=== PATIENT | male | born 1980 | race Caucasian/White ===

== ENCOUNTER 2020-10-29 10:50 | Outpatient (REF) | payer MEDICAID, SELFPAY ==
--- NOTE | 2020-10-29 10:59 | XR_ITS ---
EXAMINATION: XR FOOT, RIGHT CLINICAL INFORMATION: Right foot pain. COMPARISON: None TECHNIQUE: AP, lateral, and oblique views of the right foot. FINDINGS: First metatarsophalangeal hallux valgus angulation with mild joint space narrowing and small marginal osteophytes. No osseous erosion. No fracture or dislocation. Tiny plantar and dorsal calcaneal enthesophytes. XR/XR foot RT min 3V IMPRESSION: First metatarsophalangeal hallux valgus angulation with mild degenerative arthritis. Tiny plantar and dorsal calcaneal spurs.
== END 2020-10-29 10:51 | disposition home or self-care (01) ==
LOC: HO.XRAY 10:50
PROVIDERS: Visit Provider Registered Nurse
DX: M79.671 Pain in right foot (principal); L98.9 Disorder of the skin and subcutaneous tissue, unspecified
CPT/HCPCS: 73630

== ENCOUNTER 2022-02-02 16:09 | Emergency (ER) | payer MEDICAID, SELFPAY ==
[2022-02-02 16:27] VITALS: BP 129/90; PULSE 95; RESP 18; TEMP 36.7; O2SAT 98; BMI 27.9
[2022-02-02 19:31] LABS: MANUAL DIFF FLAG NO
[2022-02-02 19:32] LABS: Basophils Absolute Auto 0.1 X10*3/uL (0.0-0.2); Basophils Percent Auto 0.9 % (0-2); Eosinophils Absolute Auto 0.2 X10*3/uL (0.0-0.4); Eosinophils Percent Auto 2.3 % (0-4); Hematocrit 45.5 % (42.0-52.0); Hemoglobin 15.3 g/dl (14.0-18.0); Imm Gran Abs Auto 0.01 X10*3/uL (0.00-0.03); Imm Gran Pct Auto 0.1 % (0.0-0.4); Lymphocytes Absolute Auto 2.8 X10*3/uL (1.2-4.9); Lymphocytes Percent Auto 35.1 % (20-40); Mean Corpuscular HGB Conc 33.6 g/dl (31.0-36.0); Mean Corpuscular Hemoglobin 28.4 pg (27.0-33.0); Mean Corpuscular Volume 84.6 fL (80.0-98.0); Mean Platelet Volume 8.8 fL (9.4-12.4); Monocytes Absolute Auto 0.8 X10*3/uL (0.1-1.2); Monocytes Percent Auto 9.8 % (2-11); Neutrophils Absolute Auto 4.2 x10*3/uL (2.0-8.3); Neutrophils Percent Auto 51.8 % (45-73); Platelet Count 257 X10*3/uL (160-400); Red Blood Count 5.38 X10*6/uL (4.60-5.80); Red Cell Distribution Width 13.2 % (11.0-16.0)
[2022-02-02 19:50] LABS: Alanine Aminotransferase 31 U/L (0-40); Alkaline Phosphatase 55 U/L (39-117); Anion Gap 13 (12-20); Aspartate Amino Transferase 35 U/L (5-37); Bilirubin Total 0.6 mg/dL (0.0-1.0); Blood Urea Nitrogen 13 mg/dL (9-16); Calcium 9.2 mg/dL (8.4-10.2); Carbon Dioxide 25 mmol/L (22-29); Chloride 100 mmol/L (96-108); Creatinine Clr Calc Pharmacy 141.8; Estimated Glomerular Filt Rate > 60; Glucose Random 168 mg/dL (60-115); Sodium 134 mmol/L (135-145); Total Protein 7.4 g/dL (6.5-8.0)
[2022-02-02 22:56] VITALS: BP 129/83; PULSE 77; RESP 16; TEMP 36.6; O2SAT 99
--- NOTE | 2022-02-02 23:00 | ED_ITS ---
HPI - Skin/Abscess/Foreign Bdy General Chief complaint: Skin/Abscess/Foreign Body Stated complaint: HBS Source: patient Mode of arrival: ambulatory Limitations: no limitations History of Present Illness HPI narrative: 41-year-old male presents for bilateral arm redness and swelling that started while he was at work. He works in a bakery, is not exposed to [place], did not state that he had any significant injuries or exposure to toxic chemicals. He has never had an experience like this. Was evaluated by his primary care physician who noted that he had an elevated blood sugar as well as an elevated A1c at 10.5. MD complaint: other (Erythema and swelling to bilateral upper extremities) Onset (ago): day(s) (2) Tetanus up to date: unsure Location: E and RUE Severity: mild Severity scale (1-10): 2 Quality: burning Pain Consistency: constant Relieving factors: none Exacerbating factors: none Associated symptoms: denies other symptoms Treatments prior to arrival: none Related Data Previous Rx's Medication Instructions Recorded doxycycline monohydrate 100 mg 100 mg PO Q12H 10 Days #20 cap 02/03/22 capsule Allergies Allergy/AdvReac Type Severity Reaction Status Date / Time shellfish derived Allergy Unknown UNKNOWN Unverified 06/25/20 17:47 [SHELLFISH DERIVED] Sulfa (Sulfonamide Allergy Unknown UNKNOWN Unverified 06/25/20 17:47 Antibiotics) [SULFA (SULFONAMIDE ANTIBIOTICS)] shellfish Allergy Unknown Uncoded 08/08/18 00:00 Review of Systems Review of Systems: Constitutional: No Fever, No Chills ENT/Mouth: No Ear Pain, No Hoarseness, No sore throat Eyes: No Eye Pain, No Swelling, No Redness, No Foreign Body Cardiovascular: No Chest Pain, No SOB Respiratory: No Cough, No Dyspnea Gastrointestinal: No Nausea, No Vomiting, No Diarrhea, No abdominal Pain Genitourinary: No Dysuria, No Hematuria Musculoskeletal: positive bilateral forearm pain, No Myalgias, No Joint Swelling Skin: No Skin lacerations, No rash, bilateral forearm redness Neuro: No Weakness, No Numbness, No Paresthesias, No Loss of Consciousness, No Dizziness, No Headache Psych: No Anxiety/Panic, No Depression Heme/Lymph: no easy bruising, no Lymphadenopathy Endocrine: No Polyuria, No Polydipsia Yes all other systems are reviewed and are negative PMFSH Past Medical History Attestation statement: The following information was validated with the patient. Source: old records reviewed Medical History Diabetes Social History Social History Advance Directives: No Advance Directives Information Provided: Yes Physical Exam Vital Signs: Vital Signs: Last Vital Signs Temp 98 F 02/02/22 22:56 Pulse 77 02/02/22 22:56 Resp 16 02/02/22 22:56 BP 129/83 02/02/22 22:56 Pulse Ox 99 02/02/22 22:56 BMI result Body Mass Index 27.9 Appearance: Alert. Oriented X3. No acute distress. Eyes: Pupils equal, round and reactive to light. ENT: Pharynx normal. Neck: Normal inspection. Neck supple. CVS: Normal heart rate and rhythm. Pulses normal. Respiratory: No respiratory distress. Breath sounds normal. Abdomen: Soft and nontender. Skin: Erythema noted to bilateral forearms dorsal aspect, Skin warm and dry. Normal skin color. Normal skin turgor. Extremities: No lower extremity edema. No edema noted to the upper extremities. Neuro: No motor deficit. No sensory deficit. Gait well-balanced will coordinate. Cranial nerves 2-12 intact. Course Course Course Narrative: 41-year-old male presents with bilateral upper arm cellulitis. There is no area of wound or puncture, no indication of insect bite. Dr. Carmichael at bedside to evaluate this patient with me. No edema noted. Will treat for cellulitis with ceftriaxone IV and p.o. doxycycline. 00:49 patient states to be feeling well. Will discharge home with doxycycline for 10 days for cellulitis. Did verbalize understanding of signs and symptoms indicating need for emergent intervention, doxycycline interaction with sun exposure and he must follow up with his primary care physician for elevated A1c. interpreter deaf utilized for all correspondence Cyan translate utilized for discharge instructions. Patient verbalized understanding of and agrees to plan of care to discharge home. Verbalized understanding of signs and symptoms indicating need for emergent intervention MDM - Skin/Abscess/Foreign Bdy Differential Diagnosis Differential diagnosis: Likely abscess of skin or subcutaneous tissue, viral exanthem, urticaria, cellulitis and contact dermatitis Medical Records Attestation: I reviewed the patient's medical records. Lab Data Attestation: I reviewed the patient's lab results. Result diagrams: 02/02/22 19:18 02/02/22 19:18 Labs: Lab Results 02/02/22 02/02/22 Range/Units 19:18 19:18 WBC 8.0 (4.8-10.8) X10*3/uL RBC 5.38 (4.60-5.80) X10*6/uL Hgb 15.3 (14.0-18.0) g/dl Hct 45.5 (42.0-52.0) % MCV 84.6 (80.0-98.0) fL MCH 28.4 (27.0-33.0) pg MCHC 33.6 (31.0-36.0) g/dl RDW 13.2 (11.0-16.0) % Plt Count 257 (160-400) X10*3/uL MPV 8.8 L (9.4-12.4) fL Immature Gran % (Auto) 0.1 (0.0-0.4) % Neut % (Auto) 51.8 (45-73) % Lymph % (Auto) 35.1 (20-40) % Preston % (Auto) 9.8 (2-11) % Eos % (Auto) 2.3 (0-4) % Baso % (Auto) 0.9 (0-2) % Lymph # (Auto) 2.8 (1.2-4.9) X10*3/uL Preston # (Auto) 0.8 (0.1-1.2) X10*3/uL Eos # (Auto) 0.2 (0.0-0.4) X10*3/uL Baso # (Auto) 0.1 (0.0-0.2) X10*3/uL Abs Immat Gran (auto) 0.01 (0.00-0.03) X10*3/uL Absolute Neuts (auto) 4.2 (2.0-8.3) x10*3/uL Absolute Nucleated RBC 0.000 (0.0-0.012) X10*3/uL Nucleated RBC % (auto) 0.0 (0.0-0.2) /100WBC Sodium 134 L (135-145) mmol/L Potassium 4.0 (3.3-5.1) mmol/L Chloride 100 (96-108) mmol/L Carbon Dioxide 25 (22-29) mmol/L Anion Gap 13 (12-20) BUN 13 (9-16) mg/dL Creatinine 0.83 (0.5-1.4) mg/dL Estim Creat Clear Calc 141.8 Estimated GFR > 60 Random Glucose 168 H (60-115) mg/dL Calcium 9.2 (8.4-10.2) mg/dL Total Bilirubin 0.6 (0.0-1.0) mg/dL AST 35 (5-37) U/L ALT 31 (0-40) U/L Alkaline Phosphatase 55 (39-117) U/L Total Protein 7.4 (6.5-8.0) g/dL Albumin 4.0 (3.5-5.0) g/dL Discharge Plan Discharge Clinical Impression: Cellulitis, Contact dermatitis Patient Disposition: Home, Self-Care Instructions: Contact Dermatitis (ED), Cellulitis (ED) Additional Instructions: Le evaluaron por celulitis en las extremidades superiores bilaterales. [place] doxiciclina cada 12 horas martha los pr?ximos 10 d?as. No se exponga a la lenny solar mientras david paxton medicamento. Debe realizar un seguimiento con siddiqui m?dico de atenci?n primaria para la elevaci?n de A1c. Siddiqui m?dico de atenci?n primaria necesita aumentar baljit medicamen tos para la diabetes. Luciana por elegir paxton departamento de emergencias para siddiqui evaluaci?n. Por favor, marta un seguimiento con el m?dico de atenci?n primaria seg?n sea necesario. Regrese al departamento de emergencias por cualquier s?ntoma nuevo, preocupante o que empeore. You were evaluated for cellulitis to bilateral upper extremities. Please take doxycycline every 12 hours for the next 10 days. Do not expose yourself to the [place] while taking this medication. You must follow-up with your primary care physician for A1c elevation. Your primary care physician needs to increase your diabetic medications. Thank you for choosing this emergency department for evaluation. Please follow-up with primary care physician as needed. Return to the emergency depart ment for any new, concerning, or worsening symptoms. Prescriptions: New doxycycline monohydrate 100 mg capsule 100 mg PO Q12H 10 Days Qty: 20 0RF Stand Alone Forms: Work/School Release
[2022-02-03] MEDS: diphenhydrAMINE HCL 50 MG/ML VIAL 12.5 MG IVPUSH (00:10)
[2022-02-03] MEDS: cefTRIAXone sodium 1 GM in 0.9 % Sodium Chloride 50 ML IV (00:11)
[2022-02-03 00:59] LABS: Erythrocyte Sedimentation Rate 8 MM/HR (0-15)
[2022-02-03 01:04] LABS: C Reactive Protein 1.74 mg/dL (< or = 0.50)
[2022-02-03 01:19] VITALS: BP 111/65; PULSE 71; RESP 16; TEMP 36.9; O2SAT 100
[2022-02-03 01:43] VITALS: BP 124/76; PULSE 77; RESP 18; O2SAT 96
== END 2022-02-03 01:51 | disposition home or self-care (01) ==
PROVIDERS: Nurse Practitioner Family; Emergency Provider Internal Medicine; PCP Family Medicine
DX: L03.114 Cellulitis of left upper limb (principal); L03.113 Cellulitis of right upper limb; L25.9 Unspecified contact dermatitis, unspecified cause; E11.9 Type 2 diabetes mellitus without complications
CPT/HCPCS: 36415; 80053; 85025; 85652; 86140; 96365; 96375; 99284; J0696; J1200

== ENCOUNTER 2022-02-11 15:04 | Outpatient (REF) | payer MEDICAID, SELFPAY ==
--- NOTE | ~2022-02-11 | XR_ITS ---
EXAMINATION: XR FOREARM, RIGHT XR FOREARM, LEFT CLINICAL INFORMATION: Redness, edema, cellulitis. COMPARISON: Bilateral hand radiographs 09/24/2018 TECHNIQUE: Digital forearm is imaged in AP and lateral views. There are 2 views on each side, total of 4 views. FINDINGS: Bony mineralization is normal on both sides. There is no destructive process or periostitis. There is no fracture or dislocation. There is no gas tracking in the soft tissues. Again, there is negative ulnar variance on each side similar to prior radiographs. The elbows show no capsular effusion. There is mild spurring from the medial left epicondyle. XR/XR forearm RT 2V IMPRESSION: -No destructive process, periostitis, or gas tracking in soft tissues. -No fracture or dislocation.
--- NOTE | ~2022-02-11 | XR_ITS ---
EXAMINATION: XR FOREARM, RIGHT XR FOREARM, LEFT CLINICAL INFORMATION: Redness, edema, cellulitis. COMPARISON: Bilateral hand radiographs 09/24/2018 TECHNIQUE: Digital forearm is imaged in AP and lateral views. There are 2 views on each side, total of 4 views. FINDINGS: Bony mineralization is normal on both sides. There is no destructive process or periostitis. There is no fracture or dislocation. There is no gas tracking in the soft tissues. Again, there is negative ulnar variance on each side similar to prior radiographs. The elbows show no capsular effusion. There is mild spurring from the medial left epicondyle. XR/XR forearm LT 2V IMPRESSION: -No destructive process, periostitis, or gas tracking in soft tissues. -No fracture or dislocation.
== END 2022-02-11 15:05 | disposition home or self-care (01) ==
LOC: HO.XRAY 15:04
PROVIDERS: Absent Provider General Practice; PCP General Practice; Visit Provider Internal Medicine
DX: R60.0 Localized edema (principal); L03.119 Cellulitis of unspecified part of limb
CPT/HCPCS: 73090

== ENCOUNTER 2022-03-31 15:05 | Outpatient (REF) | payer MEDICAID, SELFPAY ==
--- NOTE | ~2022-03-31 | XR_ITS ---
EXAMINATION: RIGHT FOOT AND ANKLE X-RAY CLINICAL INFORMATION: Pain. Tarsal tunnel syndrome. COMPARISON: Right foot x-ray from 2020 TECHNIQUE: 3 views of the right foot and 3 views of the right ankle FINDINGS: Right foot: No fracture or dislocation is seen. There is mild hallux valgus formation at the first MTP joint. Bone alignment is otherwise normal. There are small osteophytes joint mild joint space narrowing at the first MTP joint. Joint spaces are otherwise normal. There is soft tissue swelling adjacent to the first MTP joint. There are small calcaneal spurs. Right ankle: Bone alignment is normal. There is lucency seen on the lateral view in the anterior talus. Appearance is questionable for possible nondisplaced fracture. There may be overlying soft tissue swelling the ankle mortise. The ankle mortise is normal. There is soft tissue arterial calcification. XR/XR foot RT min 3V IMPRESSION: Right foot: Mild hallux valgus deformity and degenerative change at the first MTP joint. Right ankle: Lucency of the anterior talus seen on the lateral view and adjacent soft tissue swelling. Appearance is questionable for nondisplaced fracture. Clinical correlation recommended.
--- NOTE | ~2022-03-31 | XR_ITS ---
EXAMINATION: RIGHT FOOT AND ANKLE X-RAY CLINICAL INFORMATION: Pain. Tarsal tunnel syndrome. COMPARISON: Right foot x-ray from 2020 TECHNIQUE: 3 views of the right foot and 3 views of the right ankle FINDINGS: Right foot: No fracture or dislocation is seen. There is mild hallux valgus formation at the first MTP joint. Bone alignment is otherwise normal. There are small osteophytes joint mild joint space narrowing at the first MTP joint. Joint spaces are otherwise normal. There is soft tissue swelling adjacent to the first MTP joint. There are small calcaneal spurs. Right ankle: Bone alignment is normal. There is lucency seen on the lateral view in the anterior talus. Appearance is questionable for possible nondisplaced fracture. There may be overlying soft tissue swelling the ankle mortise. The ankle mortise is normal. There is soft tissue arterial calcification. XR/XR ankle RT min 3V IMPRESSION: Right foot: Mild hallux valgus deformity and degenerative change at the first MTP joint. Right ankle: Lucency of the anterior talus seen on the lateral view and adjacent soft tissue swelling. Appearance is questionable for nondisplaced fracture. Clinical correlation recommended.
== END 2022-03-31 15:06 | disposition home or self-care (01) ==
LOC: HO.XRAY 15:05
PROVIDERS: Absent Provider General Practice; PCP General Practice; Visit Provider Internal Medicine
DX: G57.51 Tarsal tunnel syndrome, right lower limb (principal)
CPT/HCPCS: 73610; 73630

== ENCOUNTER 2022-04-23 13:31 | Emergency (ER) | payer MEDICAID, SELFPAY | END 2022-04-23 14:40 | disposition left against medical advice (07) | PROVIDERS: Emergency Provider Emergency Medicine | DX: Z20.822 Contact with and (suspected) exposure to COVID-19 (principal) ==

== ENCOUNTER 2022-07-04 12:17 | Outpatient (REF) | payer MEDICAID, SELFPAY ==
--- NOTE | ~2022-07-04 | XR_ITS ---
EXAMINATION: XR KNEE, LEFT CLINICAL INFORMATION: Pain in left knee COMPARISON: None TECHNIQUE: Four views of the left knee. FINDINGS: Bones and soft tissues are normal. No fracture or joint effusion. Alignment is anatomic. Joint spaces are well maintained. No abnormal soft tissue calcification. XR/XR knee LT 4V IMPRESSION: Normal left knee.
== END 2022-07-04 12:18 | disposition home or self-care (01) ==
LOC: HO.XRAY 12:17
PROVIDERS: Absent Provider General Practice; PCP General Practice; Visit Provider Emergency Medicine
DX: M25.562 Pain in left knee (principal)
CPT/HCPCS: 73564

== ENCOUNTER 2022-08-11 15:06 | Outpatient (REF) | payer MEDICAID, SELFPAY ==
--- NOTE | ~2022-08-11 | XR_ITS ---
EXAMINATION: XR CHEST CLINICAL INFORMATION: Localized swelling COMPARISON: None TECHNIQUE: 2 views of the chest were obtained. FINDINGS: Low lung volumes but no focal consolidation or mass. Normal pulmonary vascularity. No pleural effusion or pneumothorax. Normal heart size. Regional skeleton intact. XR/XR chest 2V IMPRESSION: Low lung volumes but no acute pulmonary disease.
== END 2022-08-11 15:07 | disposition home or self-care (01) ==
LOC: HO.XRAY 15:06
PROVIDERS: Visit Provider Nurse Practitioner Primary Care
DX: R22.2 Localized swelling, mass and lump, trunk (principal)
CPT/HCPCS: 71046

== ENCOUNTER 2022-09-23 12:45 | Outpatient (REF) | payer MEDICAID, SELFPAY ==
--- NOTE | ~2022-09-23 | US_ITS ---
EXAMINATION: US CHEST CLINICAL INFORMATION: Lump/swelling chest area, on right side COMPARISON: None TECHNIQUE: Limited imaging right of sternum was performed of clinically palpable lump/swelling. FINDINGS: Ultrasound imaging through the right sternal midline reveals no mass or fluid collection. A prominent 2nd right rib echogenic shadowing is noted compared to left side. US/US chest IMPRESSION: No focal mass or fluid collection seen. A prominent 2nd rib is noted to the right of the sternum.
== END 2022-09-23 12:46 | disposition home or self-care (01) ==
LOC: HO.HMGCX 12:45
PROVIDERS: PCP Nurse Practitioner Primary Care; Visit Provider Nurse Practitioner Primary Care
DX: R22.2 Localized swelling, mass and lump, trunk (principal)
CPT/HCPCS: 76604

== ENCOUNTER 2023-11-02 10:15 | Outpatient (REF) | payer MEDICAID, SELFPAY ==
[2023-11-02 11:49] LABS: Alanine Aminotransferase 26 U/L (0-40); Albumin Level 4.1 g/dL (3.5-5.0); Alkaline Phosphatase 56 U/L (39-117); Anion Gap 14 (12-20); Aspartate Amino Transferase 21 U/L (5-37); Bilirubin Total 0.7 mg/dL (0.0-1.0); Blood Urea Nitrogen 14 mg/dL (9-16); Calcium 9.5 mg/dL (8.4-10.2); Carbon Dioxide 28 mmol/L (22-29); Chloride 100 mmol/L (96-108); Cholesterol 200 mg/dL (<200); Estimated Glomerular Filt Rate > 60; Glucose Random 123 mg/dL (60-115); HDL Cholesterol 46 mg/dL (>40); LDL Cholesterol Calculated 130 mg/dL (<100); Sodium 138 mmol/L (135-145); Total Protein 8.3 g/dL (6.5-8.0); Triglycerides 123 mg/dL (<150)
[2023-11-02 12:21] LABS: Creatinine Urine 196.92 mg/dL; Microalbum/Creatinine Ratio Ur 7.1 ug/mg cr (<30)
== END 2023-11-02 10:16 | disposition home or self-care (01) ==
LOC: HO.HHCL 10:15
PROVIDERS: Visit Provider General Practice
DX: E11.65 Type 2 diabetes mellitus with hyperglycemia (principal)
CPT/HCPCS: 36415; 80053; 80061; 82043; 82570

== ENCOUNTER 2024-02-02 15:21 | Outpatient (REF) | payer MEDICAID, SELFPAY ==
[2024-02-02 16:51] LABS: Alanine Aminotransferase 32 U/L (0-40); Albumin Level 4.2 g/dL (3.5-5.0); Alkaline Phosphatase 54 U/L (39-117); Anion Gap 13 (12-20); Aspartate Amino Transferase 32 U/L (5-37); Bilirubin Total 0.4 mg/dL (0.0-1.0); Blood Urea Nitrogen 13 mg/dL (9-16); Calcium 9.4 mg/dL (8.4-10.2); Carbon Dioxide 29 mmol/L (22-29); Chloride 103 mmol/L (96-108); Cholesterol 201 mg/dL (<200); Creatinine Urine 86.88 mg/dL; Estimated Glomerular Filt Rate > 60; Glucose Random 116 mg/dL (60-115); HDL Cholesterol 43 mg/dL (>40); LDL Cholesterol Calculated 128 mg/dL (<100); Microalbumin Urine < 5.0 mg/L; Potassium 3.7 mmol/L (3.3-5.1); Sodium 141 mmol/L (135-145); Total Protein 8.1 g/dL (6.5-8.0); Triglycerides 151 mg/dL (<150)
[2024-02-02 17:00] LABS: TSH reflex Free T4 0.75 uIU/mL (0.32-4.0)
== END 2024-02-02 15:22 | disposition home or self-care (01) ==
LOC: HO.HHCL 15:21
PROVIDERS: Visit Provider General Practice
DX: E11.65 Type 2 diabetes mellitus with hyperglycemia (principal); R63.4 Abnormal weight loss
CPT/HCPCS: 36415; 80053; 80061; 82570; 84443

== ENCOUNTER 2024-04-16 10:51 | Outpatient (REF) | payer MEDICAID, SELFPAY ==
[2024-04-17 12:13] LABS: RPR Rapid Plasma Reagin NON-REACTIVE (NON-REACTIVE)
[2024-04-17 13:18] LABS: Lyme Abs Screen <0.90 index
== END 2024-04-16 10:52 | disposition home or self-care (01) ==
LOC: HO.HHCL 10:51
PROVIDERS: Visit Provider Emergency Medicine
DX: R51.9 Headache, unspecified (principal); E78.00 Pure hypercholesterolemia, unspecified; E78.5 Hyperlipidemia, unspecified; E55.9 Vitamin D deficiency, unspecified
CPT/HCPCS: 36415; 86592; 86617; 86618

== ENCOUNTER 2024-06-14 12:15 | Outpatient (REF) | payer OTHER, SELFPAY ==
[2024-06-15 08:03] LABS: HBS Num1 243.85 mIU/mL (0-7.99); HBc Num1 0.13 S/CO (0.00-0.79); HBsAGNum1 0.24 S/CO (0.00-0.99); HIV AB/AG Nonreactive (Nonreactive); HIV Num 1 0.06 S/CO (0.00-0.99); Hepatitis B Core Antibody Nonreactive (Nonreactive); Hepatitis B Surface Antigen Negative (Negative); ~HepC Num1 0.15 S/CO (0.00-0.79); ~Hepatitis B Surface Antibody REACTIVE (Nonreactive); ~Hepatitis C Antibody Nonreactive (Nonreactive)
== END 2024-06-14 12:16 | disposition home or self-care (01) ==
LOC: HO.HHCL 12:15
PROVIDERS: Visit Provider General Practice
DX: Z77.21 Contact with and (suspected) exposure to potentially hazardous body fluids (principal); Z11.4 Encounter for screening for human immunodeficiency virus [HIV]; Z11.59 Encounter for screening for other viral diseases
CPT/HCPCS: 36415; 86704; 86706; 86803; 87340; 87389

== ENCOUNTER 2024-08-14 09:19 | Outpatient (REF) | payer OTHER, SELFPAY ==
--- NOTE | ~2024-08-14 | XR_ITS ---
EXAMINATION: XR ELBOW, LEFT CLINICAL INFORMATION: Left elbow pain, tendinitis COMPARISON: None available. TECHNIQUE: AP, lateral, and oblique views of the left elbow. FINDINGS: The bones and soft tissues are normal. No fracture or joint effusion. Alignment is anatomic. Joint spaces are maintained. XR/XR elbow LT min 3V IMPRESSION: Normal left elbow. Electronically signed by: Jones Yadav MD 08/14/2024 12:44 PM [facility]
== END 2024-08-14 09:20 | disposition home or self-care (01) ==
LOC: HO.HHCX 09:19
PROVIDERS: Visit Provider Family Medicine
DX: M77.8 Other enthesopathies, not elsewhere classified (principal)
CPT/HCPCS: 73080

== ENCOUNTER 2024-11-01 09:55 | Outpatient (REF) | payer OTHER, SELFPAY ==
--- NOTE | ~2024-11-01 | XR_ITS ---
EXAMINATION: XR ELBOW 3 VIEWS LEFT HISTORY: M25.522 - Pain in left elbow COMPARISON: Comparison is made with the prior examination dated 08/14/2024. FINDINGS: Three views of the left elbow are submitted. Osseous mineralization is normal. There is no fracture or dislocation. The joint spaces are preserved. The soft tissues are unremarkable. XR/XR elbow LT min 3V IMPRESSION: Unremarkable examination of the left elbow. Electronically signed by: Ronny Ocasio MD 11/01/2024 11:33 AM EST
== END 2024-11-01 09:56 | disposition home or self-care (01) ==
LOC: HO.HOSX 09:55
PROVIDERS: Visit Provider Physician Assistant
DX: M25.522 Pain in left elbow (principal)
CPT/HCPCS: 73080; 99202